=== PATIENT | female | born 1965 | race Caucasian/White ===

== ENCOUNTER 2020-01-07 05:39 | Outpatient (CLI) | payer MEDICARE, MEDICAID ==
[~2020-01-07] VITALS: Ht 163 cm; Wt 80.1 kg
[2020-01-07 10:10] VITALS: BP 143/84
[2020-01-07] MEDS ORDERED: MIRA50TA PO (11:12)
[2020-01-07] MEDS ORDERED: DAPA10TA PO (11:12)
[2020-01-07] MEDS ORDERED: OXYB15TA19 PO (11:12)
[2020-01-07] MEDS ORDERED: ELUX100T PO (11:12)
[2020-01-07] MEDS ORDERED: [UNRECOGNIZED DRUG - REMARK] PO (12:17)
[2020-01-07] MEDS ORDERED: FAMO40OR5 PO (12:17)
[2020-01-07] MEDS ORDERED: GABA-486 PO (12:17)
[2020-01-07] MEDS ORDERED: PROC10TA10 PO (12:17)
== END 2020-01-07 12:18 ==
LOC: PREOP 05:39
PROVIDERS: ATTEND Specialist
DX: Z01.812 Encounter for preprocedural laboratory examination (principal); Z20.828 Contact with and (suspected) exposure to other viral communicable diseases
CPT/HCPCS: 87081; U0002; 87635

== ENCOUNTER 2020-02-27 05:32 | Outpatient (RCR) | payer MEDICARE, MEDICAID ==
[~2020-02-27] VITALS: Ht 165 cm
[~2020-02-27 05:32] MED LIST: DAPA10TA PO; ELUX100T PO; FAMO40OR5 PO; GABA-486 PO; MIRA50TA PO; OXYB15TA19 PO; PROC10TA10 PO; [UNRECOGNIZED DRUG - REMARK] PO
== END 2020-02-27 15:00 | disposition home or self-care (01) ==
LOC: PREOP 05:32
PROVIDERS: ATTEND Specialist
DX: Z01.818 Encounter for other preprocedural examination (principal); K08.89 Other specified disorders of teeth and supporting structures

== ENCOUNTER 2020-04-26 05:34 | Outpatient (RCR) | payer MEDICARE, MEDICAID ==
[~2020-04-26] VITALS: Ht 165.1 cm; Wt 80.1 kg
== END 2020-04-26 16:00 | disposition home or self-care (01) ==
LOC: PREOP 05:34
PROVIDERS: ATTEND Specialist
DX: Z01.818 Encounter for other preprocedural examination (principal)

== ENCOUNTER 2020-05-03 07:54 | Day surgery (SDC) | payer MEDICARE, MEDICAID ==
[~2020-05-03] VITALS: Ht 165.1 cm; Wt 80.1 kg
[2020-05-03] VITALS (11 sets, daily range): BP systolic 109–141; BP diastolic 58–89
[2020-05-03] MEDS ORDERED: FAMOTIDINE 20MG/2ML IV (PEPCID) IV ONE (08:15)
[2020-05-03] MEDS ORDERED: MIDAZOLAM 2 MG/2 ML (VERSED) VIAL ONE (08:15)
[2020-05-03] MEDS ORDERED: MIDAZOLAM 2 MG/2 ML (VERSED) VIAL IV ONE (08:15)
[2020-05-03] MEDS ORDERED: ceFAZolin 2 GM IV Premixed 50 ML ONE (08:16)
[2020-05-03] MEDS ORDERED: fentaNYL INJECTION 100 MCG/2 ML AMP ONE ×2 (08:16→08:17)
[2020-05-03] MEDS ORDERED: LACTATED RINGERS 1,000 ML IV PRN (08:45)
[2020-05-03] MEDS ORDERED: LIDOCAINE/EPI 1%-1:100,000 (XYLOCAINE) 50 ML ONE (09:41)
[2020-05-03] MEDS ORDERED: LIDOCAINE 1% INJ 20 ML 20 ML VIAL ONE (09:41)
[2020-05-03] MEDS ORDERED: ROPIVACAINE 5MG/ML 30ML VIAL ONE (09:41)
[2020-05-03] MEDS ORDERED: PHENYLEPHRINE 0.25% NASAL SPR (NEO-SYNEPHRINE) 15 ML NS ONE (09:53)
[2020-05-03] MEDS ORDERED: ONDANSETRON 4 MG/2 ML (SDV) Z0FRAN ONE (09:55)
[2020-05-03] MEDS ORDERED: LIDOCAINE JELLY 2% 6 ML SYRINGE ONE (09:55)
[2020-05-03] MEDS ORDERED: ROCURONIUM 10 MG/ML 5 ML SYRINGE IV ONE (09:55)
[2020-05-03] MEDS ORDERED: proPOfol 200 MG/20 ML (DIPRIVAN) VIAL IV ONE (09:55)
[2020-05-03] MEDS ORDERED: LIDOCAINE/EPI 2% 1:100,00 (XYLOCAINE) 20 ML VIAL ONE (09:55)
[2020-05-03] MEDS ORDERED: LIDOCAINE PF 2% 5 ML (XYLOCAINE) VIAL ONE (09:55)
--- NOTE | 2020-05-03 09:55 | Progress Note-Pre Operative ---
Pre-Operative Progress Note H&P Reviewed The H&P was reviewed, patient examined and no changes noted. Date Seen by Provider: May 03, 2020 Time Seen by Provider: 09:00 Date H&P Reviewed: May 03, 2020 Time H&P Reviewed: 09:00 Pre-Operative Diagnosis: multiple grossly carious teeth BINA SERNA DDS May 03, 2020 09:55
[2020-05-03] MEDS ORDERED: HYDROcodone/APAP 7.5MG-325 MG/15 ML (LORTAB) UDC PO PRN (10:00)
[2020-05-03] MEDS ORDERED: ceFAZolin 2 GM IV Premixed 50 ML IV ONE (10:30)
[2020-05-03] MEDS ORDERED: diphenhydrAMINE 50 MG/ML INJ (BENADRYL) ONE (10:30)
[2020-05-03] MEDS: ceFAZolin INJECTION 1,000 MG in WATER (STERILE) FOR INJECTION 10 ML IV SCH ×2 (10:32→10:50)
[2020-05-03] MEDS ORDERED: SEVOFLURANE (ULTANE) 15 ML INHAL SOLN ONE (10:59)
[2020-05-03] MEDS ORDERED: PHENYLEPHRINE 100 MCG/ML 10 ML (ANESTHESIA) SYR ONE (11:00)
[2020-05-03] MEDS ORDERED: fentaNYL INJECTION 100 MCG/2 ML AMP IVP ONE (11:30)
[2020-05-03] MEDS ORDERED: morphine INJ 10 MG/ML 1ML (SYR OR VIAL) IVP ONE (11:30)
[2020-05-03] MEDS ORDERED: ONDANSETRON 4 MG/2 ML (SDV) Z0FRAN IVP PRN (11:30)
[2020-05-03] MEDS ORDERED: MEPERIDINE (DEMEROL) INJ 50 MG/ML IVP ONE (11:30)
[2020-05-03] MEDS ORDERED: AMOX500T2 PO (12:24)
[2020-05-03] MEDS ORDERED: ACHD5005 PO (12:24)
--- NOTE | 2020-05-03 12:56 | Anesthesia-General Post-Op ---
General Patient Condition Mental Status/LOC: Same as Preop Cardiovascular: Satisfactory Nausea/Vomiting: Absent Respiratory: Satisfactory Pain: Controlled Complications: Absent Post Op Complications Complications None Follow Up Care/Instructions Patient Instructions None needed. Anesthesia/Patient Condition Patient Condition Patient is doing well, no complaints, stable vital signs, no apparent adverse anesthesia problems. SORAYA KHAN DO May 03, 2020 12:56
--- NOTE | 2020-05-19 15:11 | OPERATIVE REPORT ---
DATE OF SERVICE: 05/03/2020 [employer] PREOPERATIVE DIAGNOSES: Carious and nonfunctional teeth numbers 2, 3, 4, 5, 6, 7, 8, 9, 10, 11, 12, 13, 14, 15, 18, 19, 27, 28, 29, 30 and 31 and an upper alveolectomy. POSTOPERATIVE DIAGNOSES: Carious and nonfunctional teeth numbers 2, 3, 4, 5, 6, 7, 8, 9, 10, 11, 12, 13, 14, 15, 18, 19, 27, 28, 29, 30 and 31 and an upper alveolectomy. PROCEDURE PERFORMED: The removal of the aforementioned teeth and upper alveolectomy. SURGEON: Bina Serna DDS. SPIRAL WINDING MACHINE HELPER: ANESTHESIA: General endotracheal. COMPLICATIONS: There were no complications. ESTIMATED BLOOD LOSS: Minimal. FLUIDS: 1100 mL of crystalloid. INDICATION FOR PROCEDURE: The patient is a 55-year-old white female, who presents upon referral from [facility] with grossly carious and nonfunctional teeth. is significant for diabetes, high blood pressure. She has had a hernia and also has a care worker as she suffers from some mental health conditions. After speaking extensively with her and her laserist, it was determined she would best be served by having removal of these teeth and this will be performed at [facility]. DESCRIPTION OF PROCEDURE: The patient was taken to the operating room and placed on the operating table. The appropriate monitors were placed and anesthesia was induced via nasotracheal intubation. Once this was secured, the surgeon left the room, scrubbed, returned, donned sterile gowns and gloves and prepped and draped the patient in the usual standard sterile fashion. After depositing local anesthetic in and around the maxilla and bilateral mandibular blocks, I then elevated a full thickness mucoperiosteal flap. I luxated the maxillary teeth with a 301 elevator and then removed them without difficulty. There were no retained roots. There was no excessive hemorrhage. The sinus was not exposed. After this, we then smooth any rough or irregular surfaces and then removed any bony projections with a rongeur and a large round bur on a handpiece. After this, we copiously irrigated the wound with normal saline and then the wound was closed with a 3-0 chromic gut in a running fashion. After this, we turned our attention to the mandible. After elevating a full thickness flap around the mandibular teeth, they were luxated with a 301 elevator and then removed without difficulty. There were no retained roots. The neurovascular bundle was not visualized. There was no excessive hemorrhage. After this, we copiously irrigated with normal saline and the wound was closed with 3-0 chromic gut. This completed our procedure. Then, she was allowed to emerge from her general anesthetic. She was then extubated in the operating room and taken to the recovery room and assessed to have stable vital signs, breathing spontaneously with a pulse ox of 99%. Job ID: [id number] DocumentID: [id number] Dictated Date: 05/19/2020 11:24:44 Fishing Line Winding Machine Operator Date: 05/19/2020 15:10:43 Dictated By: BINA SERNA DDS
== END 2020-05-03 13:35 | disposition home or self-care (01) ==
LOC: SDC 07:54
PROVIDERS: ATTEND Specialist
DX: K02.9 Dental caries, unspecified (principal); K21.9 Gastro-esophageal reflux disease without esophagitis; E11.9 Type 2 diabetes mellitus without complications; M19.90 Unspecified osteoarthritis, unspecified site; F41.9 Anxiety disorder, unspecified; I10 Essential (primary) hypertension; Z79.899 Other long term (current) drug therapy; Z91.018 Allergy to other foods
CPT/HCPCS: 82962; 87081

== ENCOUNTER → 2021-11-23 | Outpatient (CLI) | payer MEDICARE, MEDICAID ==
[~2021-11-23] MED LIST changes: +ACHD5005 PO; +AMOX500T2 PO
--- NOTE | 2021-11-23 16:11 | Diagnostic Imaging Report ---
INDICATION: Routine screening. No prior mammograms are available for comparison. 2-D and 3-D bilateral screening mammography was performed with CAD. Scattered fibroglandular densities are identified bilaterally. No mass or malignant-appearing microcalcifications are seen. Occasional benign calcifications noted. Axillae are unremarkable. IMPRESSION: No mammographic features suspicious for malignancy are identified. ACR BI-RADS Category 2: Benign findings. Result letter will be mailed to the patient. Note: At least 10% of breast cancer is not imaged by mammography. BI-RADS Category 2 Dictated by: Dictated on workstation # [id number]
== END ==
LOC: RAD 15:03
PROVIDERS: ATTEND Nurse Practitioner Family
DX: Z12.31 Encounter for screening mammogram for malignant neoplasm of breast (principal)
CPT/HCPCS: 77063; 77067